=== PATIENT | female | born 1990 | race Caucasian/White ===

== ENCOUNTER 2016-11-07 06:47 | Inpatient (IN) | payer OTHER, MEDICAID ==
[2016-11-07] MEDS ORDERED: Nalbuphine 20 MG/1 ML Amp IVPUSH PRN (07:03)
[2016-11-07] MEDS ORDERED: Ondansetron 4 MG/2 ML SDV IVPUSH PRN ×2 (07:03→07:54)
[2016-11-07] MEDS ORDERED: Sodium Chloride 0.9% 10 ML Syringe FLUSH PRN (07:03)
--- NOTE | 2016-11-07 07:07 | PCM.LDHP ---
L&D History of Present Illness - General Date of Service: 11/07/16 Admit Problem/Dx: Patient Status Order with Admit Dx/Problem 11/07/16 07:04 Patient Status [ADT] Routine Admission Diagnosis/Problem Admission Diagnosis/Problem Normal Source of Information: Patient History Limitations: Reports: No Limitations - History of Present Illness Introduction:: Patient is a 26-year-old 001 at 40-2/7 weeks gestation who presents for induction of labor. Doing well since last seen in clinic. No significant contractions or signs of labor. Baby is doing well with good movement noted. - Related Data Allergies/Adverse Reactions: Allergies Allergy/AdvReac Type Severity Reaction Status Date / Time ketorolac [From Toradol] Allergy Rash Verified 10/22/16 21:48 tramadol Allergy Rash Verified 10/22/16 21:48 Past Medical History HYPERBARIC TECH History: Reports: : 2 Para: 1 LMP (Approximate): Psychiatric History: Reports: Anxiety, Depression - Past Surgical History HEENT Surgical History: Reports: Oral Surgery Social & Family History - Tobacco Use Smoking Status *Q: Former Smoker - Alcohol Use Alcohol Use History: No - Recreational Drug Use Recreational Drug Use: No Drug Use in Last 12 Months: Yes Recreational Drug Type: Reports: Methamphetamine H&P Review of Systems - Review of Systems: Review Of Systems: See Below General: Reports: No Symptoms Pulmonary: Reports: No Symptoms Cardiovascular: Reports: No Symptoms Gastrointestinal: Reports: No Symptoms Genitourinary: Reports: No Symptoms Musculoskeletal: Reports: No Symptoms Skin: Reports: No Symptoms Neurological: Reports: No Symptoms L&D Exam - Exam Exam: See Below - Vital Signs Weight: 70.488 kg - OB Specific Contraction Intensity: Irritability Movement: Active Heart Tones: Present Heart Tones per Min: 130 Heart Rate (FHR) Variability: Moderate (6-25 bmp) Presentation: Vertex - Delaney Score Delaney Score Cervix Position: Posterior Delaney Score Consistency: Soft Delaney Score Effacement: 31-50% Delaney Score Dilation: 3-4 cm Delaney Score 's Station: -2 Delaney Score Total: 6 - Exam General: Alert, Oriented, Cooperative Lungs: Clear to Auscultation, Normal Respiratory Effort Cardiovascular: Regular Rate, Regular Rhythm GI/Abdominal Exam: Soft Genitourinary: Normal external exam Extremities: Normal Inspection Skin: Warm, Dry, Intact - Patient Data Result Diagrams: 11/07/16 07:20 - Problem List (1) 40 weeks gestation of SNOMED Code(s): 14971900 ICD Code: Z3A.40 - 40 WEEKS GESTATION OF Status: Acute Current Visit: Yes (2) Elective induction of labor planned SNOMED Code(s): 815731047 ICD Code: [id number] - Status: Acute Current Visit: Yes (3) History of substance abuse SNOMED Code(s): 621970194 ICD Code: Z87.898 - PERSONAL HISTORY OF OTHER SPECIFIED CONDITIONS Status: Acute Current Visit: Yes (4) Imprisonment and other incarceration SNOMED Code(s): 47789436 ICD Code: Z65.1 - IMPRISONMENT AND OTHER INCARCERATION Status: Acute Current Visit: Yes Problem List Initiated/Reviewed/Updated: Yes Orders Last 24hrs: Active Orders 24 hr Category Date Time Status Patient Status [ADT] Routine ADT 11/07/16 07:04 Ordered Communication Order [RC] ASDIRECTED Care 11/07/16 07:03 Ordered Communication Order [RC] ASDIRECTED Care 11/07/16 07:03 Ordered Communication Order [RC] ASDIRECTED Care 11/07/16 07:03 Ordered Heart Tones [RC] ASDIRECTED Care 11/07/16 07:04 Ordered Monitoring [RC] INTERMITTENT Care 11/07/16 07:03 Ordered Notify Provider [RC] ASDIRECTED Care 11/07/16 07:03 Ordered Notify Provider [RC] PFP Care 11/07/16 07:03 Ordered Notify Provider [RC] PRN Care 11/07/16 07:03 Ordered Peripheral IV Care [RC] . DIRECTED Care 11/07/16 07:04 Ordered Up ad Radha [RC] ASDIRECTED Care 11/07/16 07:04 Ordered Vaginal Exam [RC] ASDIRECTED Care 11/07/16 07:03 Ordered Vital Signs [RC] ASDIRECTED Care 11/07/16 07:03 Ordered Regular Diet [DIET] Diet 11/07/16 Breakfast Ordered CBC W/O DIFF,HEMOGRAM [HEME] Routine Lab 11/07/16 08:00 Ordered TYPE AND SCREEN [BBK] Routine Lab 11/07/16 08:00 Ordered Lactated Ringers [Ringers, Lactated] 1,000 ml Med 11/07/16 07:15 Ordered IV ASDIRECTED Nalbuphine [Nubain] Med 11/07/16 07:03 Ordered 10 mg IVPUSH Q2H PRN Ondansetron [Zofran] Med 11/07/16 07:03 Ordered 4 mg IVPUSH Q4H PRN Oxytocin/Lactated Ringers [Pitocin in LR 10 Units/1,000 Med 11/07/16 07:15 Ordered ML] 10 unit in 1,000 ml IV .CONTINUOUS Oxytocin/Lactated Ringers [Pitocin in LR 10 Units/1,000 Med 11/07/16 07:15 Ordered ML] 10 unit in 1,000 ml IV TITRATE Sodium Chloride 0.9% [Saline Flush] Med 11/07/16 07:03 Ordered 10 ml FLUSH ASDIRECTED PRN Electronic Heart Tones Ext w TOCO [WOMSER] Oth 11/07/16 07:03 Ordered Routine Electronic Heart Tones Internal [WOMSER] Per Unit Ot 11/07/16 07:03 Ordered Routine Peripheral IV Insertion Adult [OM.PC] Routine Oth 11/07/16 07:03 Ordered Resuscitation Status Routine Resus Stat 11/07/16 07:03 Ordered Assessment/Plan Comment:: 26-year-old 001 at 40-2/7 weeks gestation presents for induction of labor * CBC and type and screen * GBS negative, no need for antibiotics * Plan for Pitocin and AROM when able * Pain management per patient preference * Anticipate * Arrangements have been made for childcare after patient delivery Michelle Diaz MD
[2016-11-07] MEDS ORDERED: Oxytocin/Lactated Ringers 10 UNIT/1,000 ML BAG IV SCH ×2 (07:15)
[2016-11-07] MEDS ORDERED: ePHEDrine 50 MG/ML SDV IVPUSH PRN (07:54)
[2016-11-07] MEDS ORDERED: fentaNYL 100 MCG/2 ML SDV EPIDUR PRN (07:54)
[2016-11-07] MEDS ORDERED: Bupivacaine/fentaNYL/NS 100 ML Bag EPIDUR SCH (08:00)
--- NOTE | 2016-11-07 08:06 | PCM.PREANE ---
Preanesthetic Assessment - Anesthesia/Transfusion/Family Hx Anesthesia History: Prior Anesthesia Without Reaction (epidural in the past, no problems noted. No GA noted.) Family History of Anesthesia Reaction: No Transfusion History: No Prior Transfusion(s) Intubation History: Unknown - Review of Systems General: No Symptoms Pulmonary: No Symptoms Cardiovascular: No Symptoms, Palpitations (infrequent), Lightheadedness Gastrointestinal: No Symptoms Neurological: No Symptoms Other: Reports: Easy Bruising, Depression, Anxiety - Physical Assessment NPO Status Date: 11/07/16 NPO Status Time: 06:00 Pulse: 82 O2 Sat by Pulse Oximetry: 97 Respiratory Rate: 16 Blood Pressure: 110/76 Temperature: 36.4 C Height: 1.63 m Weight: 70.488 kg ASA Class: 2 Mental Status: Alert & Oriented x3 Airway Class: Mallampati = 2 Dentition: Reports: Normal Dentition, Caries Thyro-Mental Finger Breadths: 3 Mouth Opening Finger Breadths: 3 ROM/Head Extension: Full Lungs: Clear to Auscultation, Normal Respiratory Effort Cardiovascular: Regular Rate, Regular Rhythm - Lab Values: Laboratory Last Values WBC 10.40 K/mm3 (3.98-10.04) H 11/07/16 07:20 RBC 4.12 M/mm3 (3.98-5.22) 11/07/16 07:20 Hgb 12.4 gm/L (11.2-15.7) 11/07/16 07:20 Hct 37.0 % (34.1-44.9) 11/07/16 07:20 MCV 89.8 fl (79.4-94.8) 11/07/16 07:20 MCH 30.1 pg (25.6-32.2) 11/07/16 07:20 MCHC 33.5 g/dl (32.2-35.5) 11/07/16 07:20 RDW Std Deviation 45.7 fL (36.4-46.3) 11/07/16 07:20 Plt Count 209 K/mm3 (182-369) 11/07/16 07:20 MPV 11.1 fl (9.4-12.3) 11/07/16 07:20 Above labs reviewed and noted. 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: Psychiatric History: Reports: Anxiety, Depression - Past Surgical History HEENT Surgical History: Reports: Oral Surgery - SUBSTANCE USE Smoking Status *Q: Former Smoker Recreational Drug Use History: No Recreational Drug Type: Reports: Methamphetamine - CURRENT (IN HOUSE) MEDS Current Meds: Current Medications Ephedrine Sulfate (Ephedrine Sulfate) 5 mg IVPUSH ASDIRECTED PRN PRN Reason: Hypotension Fentanyl (Sublimaze) 100 mcg EPIDUR Q3H PRN PRN Reason: Pain Fentanyl/Bupivacaine HCl (Fentanyl/Bupivacaine/Ns 2 Mcg-0.125% 100 Ml) 100 ml EPIDUR ASDIRECTED MONICA Lactated Ringer's (Ringers, Lactated) 1,000 mls @ 40 mls/hr IV ASDIRECTED MONICA Oxytocin/Lactated Ringer's (Pitocin In Lr 10 Units/1,000 Ml) 10 unit in 1,000 mls @ 500 mls/hr IV .CONTINUOUS MONICA Oxytocin/Lactated Ringer's (Pitocin In Lr 10 Units/1,000 Ml) 10 unit in 1,000 mls @ 12 mls/hr IV TITRATE MONICA; 2 MUNITS/MIN PRN Reason: Protocol Nalbuphine HCl (Nubain) 10 mg IVPUSH Q2H PRN PRN Reason: Pain (moderate 4-6) Ondansetron HCl (Zofran) 4 mg IVPUSH Q4H PRN PRN Reason: Nausea/Vomiting Ondansetron HCl (Zofran) 4 mg IVPUSH ONETIME PRN PRN Reason: Nausea/Vomiting Sodium Chloride (Saline Flush) 10 ml FLUSH ASDIRECTED PRN PRN Reason: Keep Vein Open
[2016-11-07] MEDS: Lactated Ringers 1,000 ML IV SCH ×6 (08:22→19:24)
--- NOTE | 2016-11-07 12:17 | PCM.PNLD ---
Labor Progress Note - VS & Meds Vital Signs: Last Vital Signs Temp 36.4 C 11/07/16 08:07 Pulse 82 11/07/16 08:07 Resp 16 11/07/16 08:07 BP 110/76 11/07/16 08:07 Pulse Ox 97 11/07/16 08:07 Active Medications: Current Medications Ephedrine Sulfate (Ephedrine Sulfate) 5 mg IVPUSH ASDIRECTED PRN PRN Reason: Hypotension Fentanyl (Sublimaze) 100 mcg EPIDUR Q3H PRN PRN Reason: Pain Last Admin: 11/07/16 12:04 Dose: 100 mcg Fentanyl/Bupivacaine HCl (Fentanyl/Bupivacaine/Ns 2 Mcg-0.125% 100 Ml) 100 ml EPIDUR ASDIRECTED MONICA Last Admin: 11/07/16 12:03 Dose: 100 ml Lactated Ringer's (Ringers, Lactated) 1,000 mls @ 40 mls/hr IV ASDIRECTED MONICA Last Admin: 11/07/16 12:09 Dose: 999 mls/hr Oxytocin/Lactated Ringer's (Pitocin In Lr 10 Units/1,000 Ml) 10 unit in 1,000 mls @ 500 mls/hr IV .CONTINUOUS MONICA Oxytocin/Lactated Ringer's (Pitocin In Lr 10 Units/1,000 Ml) 10 unit in 1,000 mls @ 12 mls/hr IV TITRATE MONICA; 2 MUNITS/MIN PRN Reason: Protocol Last Titration: 11/07/16 10:30 Dose: 8 munits/min, 48 mls/hr Nalbuphine HCl (Nubain) 10 mg IVPUSH Q2H PRN PRN Reason: Pain (moderate 4-6) Ondansetron HCl (Zofran) 4 mg IVPUSH Q4H PRN PRN Reason: Nausea/Vomiting Ondansetron HCl (Zofran) 4 mg IVPUSH ONETIME PRN PRN Reason: Nausea/Vomiting Sodium Chloride (Saline Flush) 10 ml FLUSH ASDIRECTED PRN PRN Reason: Keep Vein Open - Uterine Contractions Uterine Monitoring Mode: External [place] Contraction Intensity: Mild to Moderate - Monitoring Monitor Mode: External Ultrasound Heart Rate (FHR) Baseline: 130 Heart Rate (FHR) Variability: Moderate (6-25 bmp) Accelerations: Present, 15x15 Decelerations: None Strip Review: Category I - Labor Progress (Free Text) Labor Progress: Patient on pitocin of 8. Was planning on doing AROM, but now with low BP's after epidural. Will allow nursing/STORY TELLER to treat BP's and return at a later time for AROM.
--- NOTE | 2016-11-07 13:24 | PCM.SN ---
- Free Text/Narrative Note: Patient experienced some hypotension that required 3 doses of ephedrine, given incrementally. (1245 5 mg IV ephedrine, 1246 10mg IV ephedrine, 1253 5mg IV ephedrine) Pressures ranged in 60's-80's/30-40's, pressures responded nicely to ephedrine with response being back to normal baselines. Pt. able to move toes, legs feel heavy, and infusion turned down to 8ml's/ hr. Patient given verbal reassurance and pressures maintaining in acceptable ranges.
--- NOTE | 2016-11-07 16:40 | PCM.PNLD ---
Labor Progress Note - VS & Meds Vital Signs: Last Vital Signs Temp 36.4 C 11/07/16 08:07 Pulse 82 11/07/16 08:07 Resp 16 11/07/16 08:07 BP 110/76 11/07/16 08:07 Pulse Ox 97 11/07/16 08:07 Active Medications: Current Medications Ephedrine Sulfate (Ephedrine Sulfate) 5 mg IVPUSH ASDIRECTED PRN PRN Reason: Hypotension Fentanyl (Sublimaze) 100 mcg EPIDUR Q3H PRN PRN Reason: Pain Last Admin: 11/07/16 12:04 Dose: 100 mcg Fentanyl/Bupivacaine HCl (Fentanyl/Bupivacaine/Ns 2 Mcg-0.125% 100 Ml) 100 ml EPIDUR ASDIRECTED MONICA Last Admin: 11/07/16 12:03 Dose: 100 ml Lactated Ringer's (Ringers, Lactated) 1,000 mls @ 40 mls/hr IV ASDIRECTED MONICA Last Admin: 11/07/16 14:32 Dose: 999 mls/hr Oxytocin/Lactated Ringer's (Pitocin In Lr 10 Units/1,000 Ml) 10 unit in 1,000 mls @ 500 mls/hr IV .CONTINUOUS MONIAC Oxytocin/Lactated Ringer's (Pitocin In Lr 10 Units/1,000 Ml) 10 unit in 1,000 mls @ 12 mls/hr IV TITRATE MONICA; 2 MUNITS/MIN PRN Reason: Protocol Last Titration: 11/07/16 15:30 Dose: 12 munits/min, 72 mls/hr Nalbuphine HCl (Nubain) 10 mg IVPUSH Q2H PRN PRN Reason: Pain (moderate 4-6) Ondansetron HCl (Zofran) 4 mg IVPUSH Q4H PRN PRN Reason: Nausea/Vomiting Ondansetron HCl (Zofran) 4 mg IVPUSH ONETIME PRN PRN Reason: Nausea/Vomiting Sodium Chloride (Saline Flush) 10 ml FLUSH ASDIRECTED PRN PRN Reason: Keep Vein Open - Uterine Contractions Uterine Monitoring Mode: External [place] Contraction Intensity: Mild to Moderate - Monitoring Monitor Mode: External Ultrasound Heart Rate (FHR) Baseline: 130 Heart Rate (FHR) Variability: Moderate (6-25 bmp) Accelerations: Present, 15x15 Decelerations: None Strip Review: Category I - Vaginal Exam Dilation (cm): 4 Effacement (Percent): 50 Station: -2 Cervical Position: Midposition - Labor Progress (Free Text) Labor Progress: Patient doing well. Comfortable with epidural. Pitocin now at 12. AROM done with release of clear fluid.
[2016-11-07] MEDS ORDERED: diphenhydrAMINE 50 MG/ML SDV IVPUSH PRN ×2 (18:40→18:52)
[2016-11-07] MEDS ORDERED: Phenylephrine 1% 10 MG/ML SDV ONE (22:22)
[2016-11-07] MEDS ORDERED: Bupivacaine 0.25% 10 ML SDV ONE (22:22)
[2016-11-07] MEDS ORDERED: ePHEDrine 50 MG/ML SDV ONE (22:22)
[2016-11-07] MEDS ORDERED: Docusate Sodium 100 MG Cap PO PRN (23:01)
[2016-11-07] MEDS ORDERED: Witch Hazel Medicated Pads 100/Jar TOP PRN (23:01)
[2016-11-07] MEDS ORDERED: Benzocaine/Menthol 20%-0.5% Spray 56 GM Canister TOP PRN (23:01)
[2016-11-07] MEDS ORDERED: Lanolin 100% Cream 7 GM Tube TOP PRN (23:01)
[2016-11-08] MEDS: Acetaminophen 325 MG Tab PO PRN ×4 (02:10→22:06)
--- NOTE | 2016-11-08 06:39 | PCM.SN ---
- Free Text/Narrative Note: Informed patient that I was being called to perform urgent/emergent surgery from ED. Dr. Persaud to cover in case patient delivers during this time. She did deliver with Dr. Persaud. See Jordan Elba for details of delivery
--- NOTE | 2016-11-08 06:47 | PCM.PNPP ---
- General Info Date of Service: 11/08/16 Functional Status: Reports: Pain Controlled, Tolerating Diet, Ambulating - Review of Systems General: Reports: No Symptoms Pulmonary: Reports: No Symptoms Cardiovascular: Reports: No Symptoms Gastrointestinal: Reports: Abdominal Pain (cramping) Genitourinary: Reports: No Symptoms Musculoskeletal: Reports: No Symptoms - Patient Data Vital Signs - Most Recent: Last Vital Signs Temp 37.0 C 11/08/16 04:00 Pulse 64 11/08/16 04:00 Resp 16 11/08/16 04:00 BP 106/88 11/08/16 04:00 Pulse Ox 96 11/08/16 04:00 Weight - Most Recent: 70.488 kg I&O - Last 24 Hours: Intake & Output 11/07/16 11/07/16 11/08/16 14:59 22:59 06:59 Intake Total 5980 1800 Output Total 1475 Balance 4505 1800 Lab Results - Last 24 Hours: Laboratory Results - last 24 hr 11/07/16 11/07/16 11/07/16 Range/Units 07:20 07:20 09:45 WBC 10.40 H (3.98-10.04) K/mm3 RBC 4.12 (3.98-5.22) M/mm3 Hgb 12.4 (11.2-15.7) gm/L Hct 37.0 (34.1-44.9) % MCV 89.8 (79.4-94.8) fl MCH 30.1 (25.6-32.2) pg MCHC 33.5 (32.2-35.5) g/dl RDW Std Deviation 45.7 (36.4-46.3) fL Plt Count 209 (182-369) K/mm3 MPV 11.1 (9.4-12.3) fl MRSA (PCR) Negative Blood Type A POSITIVE Gel Antibody Screen Negative Med Orders - Current: Current Medications Acetaminophen (Tylenol) 650 mg PO Q6H PRN PRN Reason: mild pain or fever Last Admin: 11/08/16 02:10 Dose: 650 mg Benzocaine/Menthol (Dermoplast Pain Relief [place]) 0 gm TOP ASDIRECTED PRN PRN Reason: Perineal Comfort Measure Docusate Sodium (Colace) 100 mg PO BID PRN PRN Reason: Constipation Emollient Ointment (Lansinoh Hpa) 0 gm TOP ASDIRECTED PRN PRN Reason: Sore Nipples Witch Joya (Tucks) 1 pad TOP ASDIRECTED PRN PRN Reason: Hemorrhoid pain Discontinued Medications Diphenhydramine HCl (Benadryl) 25 mg IVPUSH Q6H PRN PRN Reason: Itching Last Admin: 11/07/16 18:51 Dose: 25 mg Diphenhydramine HCl (Benadryl) 25 mg IVPUSH Q6H PRN PRN Reason: pruritis Ephedrine Sulfate (Ephedrine Sulfate) 5 mg IVPUSH ASDIRECTED PRN PRN Reason: Hypotension Fentanyl (Sublimaze) 100 mcg EPIDUR Q3H PRN PRN Reason: Pain Last Admin: 11/07/16 12:04 Dose: 100 mcg Fentanyl/Bupivacaine HCl (Fentanyl/Bupivacaine/Ns 2 Mcg-0.125% 100 Ml) 100 ml EPIDUR ASDIRECTED MONICA Last Admin: 11/07/16 12:03 Dose: 100 ml Lactated Ringer's (Ringers, Lactated) 1,000 mls @ 40 mls/hr IV ASDIRECTED MONICA Last Admin: 11/07/16 19:24 Dose: 125 mls/hr Oxytocin/Lactated Ringer's (Pitocin In Lr 10 Units/1,000 Ml) 10 unit in 1,000 mls @ 500 mls/hr IV .CONTINUOUS MONICA Last Admin: 11/07/16 23:00 Dose: 500 mls/hr Oxytocin/Lactated Ringer's (Pitocin In Lr 10 Units/1,000 Ml) 10 unit in 1,000 mls @ 12 mls/hr IV TITRATE MONICA; 2 MUNITS/MIN PRN Reason: Protocol Last Titration: 11/07/16 20:43 Dose: 6 munits/min, 36 mls/hr Nalbuphine HCl (Nubain) 10 mg IVPUSH Q2H PRN PRN Reason: Pain (moderate 4-6) Ondansetron HCl (Zofran) 4 mg IVPUSH Q4H PRN PRN Reason: Nausea/Vomiting Ondansetron HCl (Zofran) 4 mg IVPUSH ONETIME PRN PRN Reason: Nausea/Vomiting Sodium Chloride (Saline Flush) 10 ml FLUSH ASDIRECTED PRN PRN Reason: Keep Vein Open - Interaction Infant Disposition, : [place] in Room with Family Interaction: Holding Feeding: Bottle Fed Infant Support Person: Other (see below) - Recovery Exam Fundal Tone: Firm Fundal Level: At Umbilicus Fundal Placement: Midline Lochia Amount: Scant Lochia Color: Rubra/Red Perineum Description: Intact, Minimal Bruising/Swelling Episiotomy/Laceration: None Bladder Status: Voiding - Exam General: Alert, Oriented, Cooperative GI/Abdominal Exam: Soft, Non-Tender Extremities: Normal Inspection Skin: Warm, Dry, Intact - Problem List & Annotations (1) 40 weeks gestation of SNOMED Code(s): 06334939 Code(s): Z3A.40 - 40 WEEKS GESTATION OF Status: Acute Current Visit: Yes (2) Elective induction of labor planned SNOMED Code(s): 888216608 Code(s): HRV5286 - Status: Acute Current Visit: Yes (3) History of substance abuse SNOMED Code(s): 510763794 Code(s): Z87.898 - PERSONAL HISTORY OF OTHER SPECIFIED CONDITIONS Status: Acute Current Visit: Yes (4) Imprisonment and other incarceration SNOMED Code(s): 78856969 Code(s): Z65.1 - IMPRISONMENT AND OTHER INCARCERATION Status: Acute Current Visit: Yes (5) Vaginal delivery SNOMED Code(s): 126669460 Code(s): O80 - ENCOUNTER FOR FULL-TERM UNCOMPLICATED DELIVERY Status: Acute Current Visit: Yes - Problem List Review Problem List Initiated/Reviewed/Updated: Yes - My Orders Last 24 Hours: My Active Orders 11/07/16 07:03 Monitoring [RC] INTERMITTENT Vaginal Exam [RC] ASDIRECTED Resuscitation Status Routine 11/07/16 07:04 Heart Tones [RC] ASDIRECTED Peripheral IV Care [RC] . DIRECTED - Assessment Assessment:: 26-year-old PPD#1 from at 40-2/7 weeks - Plan Plan:: * Routine cares * Bottle feeding * Discharge home tomorrow Michelle Diaz MD
--- NOTE | 2016-11-08 10:29 | PCM48HPAN ---
Post Anesthesia Note - EVALUATION WITHIN 48HRS OF ANESTHETIC Vital Signs in Normal Range: Yes Patient Participated in Evaluation: No (patient asleep) Respiratory Function Stable: Yes Airway Patent: Yes Cardiovascular Function Stable: Yes Hydration Status Stable: Yes Pain Control Satisfactory: Yes Nausea and Vomiting Control Satisfactory: Yes Mental Status Recovered: Yes
[2016-11-09] MEDS: Acetaminophen 325 MG Tab PO PRN (04:13)
[2016-11-09 04:15] VITALS: BP 96/55
--- NOTE | 2016-11-09 07:08 | PCM.PNPP ---
- General Info Date of Service: 11/09/16 Functional Status: Reports: Pain Controlled, Tolerating Diet, Ambulating, Urinating - Review of Systems General: Reports: No Symptoms Pulmonary: Reports: No Symptoms Cardiovascular: Reports: No Symptoms Gastrointestinal: Reports: No Symptoms Genitourinary: Reports: No Symptoms Musculoskeletal: Reports: No Symptoms - Patient Data Vital Signs - Most Recent: Last Vital Signs Temp 36.1 C 11/09/16 04:00 Pulse 62 11/09/16 04:00 Resp 14 11/09/16 04:00 BP 96/55 L 11/09/16 04:00 Pulse Ox 98 11/09/16 04:00 Weight - Most Recent: 70.488 kg Med Orders - Current: Current Medications Acetaminophen (Tylenol) 650 mg PO Q6H PRN PRN Reason: mild pain or fever Last Admin: 11/09/16 04:13 Dose: 650 mg Benzocaine/Menthol (Dermoplast Pain Relief [place]) 0 gm TOP ASDIRECTED PRN PRN Reason: Perineal Comfort Measure Docusate Sodium (Colace) 100 mg PO BID PRN PRN Reason: Constipation Emollient Ointment (Lansinoh Hpa) 0 gm TOP ASDIRECTED PRN PRN Reason: Sore Nipples Witch Joya (Tucks) 1 pad TOP ASDIRECTED PRN PRN Reason: Hemorrhoid pain Discontinued Medications Bupivacaine HCl (Sensorcaine-Mpf 0.25%) 10 ml .ROUTE .STK-MED ONE Stop: 11/07/16 22:23 Diphenhydramine HCl (Benadryl) 25 mg IVPUSH Q6H PRN PRN Reason: Itching Last Admin: 11/07/16 18:51 Dose: 25 mg Diphenhydramine HCl (Benadryl) 25 mg IVPUSH Q6H PRN PRN Reason: pruritis Ephedrine Sulfate (Ephedrine Sulfate) 5 mg IVPUSH ASDIRECTED PRN PRN Reason: Hypotension Ephedrine Sulfate (Ephedrine Sulfate) 50 mg .ROUTE .STK-MED ONE Stop: 11/07/16 22:23 Fentanyl (Sublimaze) 100 mcg EPIDUR Q3H PRN PRN Reason: Pain Last Admin: 11/07/16 12:04 Dose: 100 mcg Fentanyl/Bupivacaine HCl (Fentanyl/Bupivacaine/Ns 2 Mcg-0.125% 100 Ml) 100 ml EPIDUR ASDIRECTED MONICA Last Admin: 11/07/16 12:03 Dose: 100 ml Lactated Ringer's (Ringers, Lactated) 1,000 mls @ 40 mls/hr IV ASDIRECTED MONICA Last Admin: 11/07/16 19:24 Dose: 125 mls/hr Oxytocin/Lactated Ringer's (Pitocin In Lr 10 Units/1,000 Ml) 10 unit in 1,000 mls @ 500 mls/hr IV .CONTINUOUS MONICA Last Admin: 11/07/16 23:00 Dose: 500 mls/hr Oxytocin/Lactated Ringer's (Pitocin In Lr 10 Units/1,000 Ml) 10 unit in 1,000 mls @ 12 mls/hr IV TITRATE MONICA; 2 MUNITS/MIN PRN Reason: Protocol Last Titration: 11/07/16 20:43 Dose: 6 munits/min, 36 mls/hr Nalbuphine HCl (Nubain) 10 mg IVPUSH Q2H PRN PRN Reason: Pain (moderate 4-6) Ondansetron HCl (Zofran) 4 mg IVPUSH Q4H PRN PRN Reason: Nausea/Vomiting Ondansetron HCl (Zofran) 4 mg IVPUSH ONETIME PRN PRN Reason: Nausea/Vomiting Phenylephrine HCl ([place]-Synephrine) 10 mg .ROUTE .STK-MED ONE Stop: 11/07/16 22:23 Sodium Chloride (Saline Flush) 10 ml FLUSH ASDIRECTED PRN PRN Reason: Keep Vein Open - Infant Interaction Disposition, : in Room with Family Infant Interaction: Holding Infant Infant Feeding: Bottle Fed Support Person: Other (see below) - Recovery Exam Fundal Tone: Firm Fundal Level: At Umbilicus Fundal Placement: Midline Lochia Amount: Small Lochia Color: Rubra/Red Perineum Description: Intact, Minimal Bruising/Swelling Episiotomy/Laceration: None Bladder Status: Voiding Urinary Elimination: Voided - Exam General: Alert, Oriented, Cooperative GI/Abdominal Exam: Soft, Non-Tender Extremities: Normal Inspection Skin: Warm, Dry, Intact - Problem List & Annotations (1) 40 weeks gestation of SNOMED Code(s): 97257574 Code(s): Z3A.40 - 40 WEEKS GESTATION OF Status: Acute (2) Elective induction of labor planned SNOMED Code(s): 404578531 Code(s): LBJ9959 - Status: Acute (3) History of substance abuse SNOMED Code(s): 003152479 Code(s): Z87.898 - PERSONAL HISTORY OF OTHER SPECIFIED CONDITIONS Status: Acute (4) Imprisonment and other incarceration SNOMED Code(s): 32516464 Code(s): Z65.1 - IMPRISONMENT AND OTHER INCARCERATION Status: Acute (5) Vaginal delivery SNOMED Code(s): 521981604 Code(s): O80 - ENCOUNTER FOR FULL-TERM UNCOMPLICATED DELIVERY Status: Acute - Problem List Review Problem List Initiated/Reviewed/Updated: Yes - Assessment Assessment:: 26-year-old PPD#2 from at 40-2/7 weeks - Plan Plan:: * Routine cares * Bottle feeding * Discharge to correctional facility today Michelle Diaz MD
--- NOTE | 2016-11-09 07:08 | PCM.DCSUM1 ---
Discharge Summary - Discharge Data Discharge Date: 11/09/16 Discharge Disposition: DC/Tfer to Court [facility] Enf 21 Condition: Good - Discharge Diagnosis/Problem(s) (1) 40 weeks gestation of SNOMED Code(s): 73473172 ICD Code: Z3A.40 - 40 WEEKS GESTATION OF Status: Acute (2) Elective induction of labor planned SNOMED Code(s): 505094955 ICD Code: [id number] - Status: Acute (3) History of substance abuse SNOMED Code(s): 176934149 ICD Code: Z87.898 - PERSONAL HISTORY OF OTHER SPECIFIED CONDITIONS Status: Acute (4) Imprisonment and other incarceration SNOMED Code(s): 25549048 ICD Code: Z65.1 - IMPRISONMENT AND OTHER INCARCERATION Status: Acute (5) Vaginal delivery SNOMED Code(s): 579741998 ICD Code: O80 - ENCOUNTER FOR FULL-TERM UNCOMPLICATED DELIVERY Status: Acute - Patient Summary/Data Complications: None Consults: None Recommended Follow-up Testing/Procedures: Follow up in 4 weeks for check Hospital Course: 26 y/o presented at 40 2/7 wks gestation for elective IOL. This was done with pitocin and AROM when able. She progressed well to complete dilation and underwent an uncomplicated . See delivery note. she did well and was discharged back to her correctional facility on PPD#2 - Patient Instructions Diet: Regular Diet as Tolerated Activity: As Tolerated Activity, Other: Pelvic Rest for 6 weeks Driving: May Drive Today Showering/Bathing: May Shower Showering/Bathing, Other: May bathe Notify Provider of: Fever, Increased Pain, Swelling and Redness, Drainage, Nausea and/or Vomiting - Discharge Plan Home Medications: Home Meds Docusate Sodium [Colace] 1 tab PO DAILY 11/07/16 [History] Vit #108/Iron/FA [ One Tablet] 1 tab PO DAILY 11/07/16 [History ] Patient Handouts: Smoking Hazards, Vaginal Delivery, Care After, Smoking Cessation, Tips for Success Referrals: Michelle Diaz MD [Physician] - (4 weeks for check ) - Discharge Summary/Plan Comment DC Time >30 min.: No - Patient Data Vitals - Most Recent: Last Vital Signs Temp 36.1 C 11/09/16 04:00 Pulse 62 11/09/16 04:00 Resp 14 11/09/16 04:00 BP 96/55 L 11/09/16 04:00 Pulse Ox 98 11/09/16 04:00 Weight - Most Recent: 70.488 kg Med Orders - Current: Current Medications Acetaminophen (Tylenol) 650 mg PO Q6H PRN PRN Reason: mild pain or fever Last Admin: 11/09/16 04:13 Dose: 650 mg Benzocaine/Menthol (Dermoplast Pain Relief [place]) 0 gm TOP ASDIRECTED PRN PRN Reason: Perineal Comfort Measure Docusate Sodium (Colace) 100 mg PO BID PRN PRN Reason: Constipation Emollient Ointment (Lansinoh Hpa) 0 gm TOP ASDIRECTED PRN PRN Reason: Sore Nipples Witch Joya (Tucks) 1 pad TOP ASDIRECTED PRN PRN Reason: Hemorrhoid pain Discontinued Medications Bupivacaine HCl (Sensorcaine-Mpf 0.25%) 10 ml .ROUTE .STK-MED ONE Stop: 11/07/16 22:23 Diphenhydramine HCl (Benadryl) 25 mg IVPUSH Q6H PRN PRN Reason: Itching Last Admin: 11/07/16 18:51 Dose: 25 mg Diphenhydramine HCl (Benadryl) 25 mg IVPUSH Q6H PRN PRN Reason: pruritis Ephedrine Sulfate (Ephedrine Sulfate) 5 mg IVPUSH ASDIRECTED PRN PRN Reason: Hypotension Ephedrine Sulfate (Ephedrine Sulfate) 50 mg .ROUTE .STK-MED ONE Stop: 11/07/16 22:23 Fentanyl (Sublimaze) 100 mcg EPIDUR Q3H PRN PRN Reason: Pain Last Admin: 11/07/16 12:04 Dose: 100 mcg Fentanyl/Bupivacaine HCl (Fentanyl/Bupivacaine/Ns 2 Mcg-0.125% 100 Ml) 100 ml EPIDUR ASDIRECTED [facility] [place] Last Admin: 11/07/16 12:03 Dose: 100 ml Lactated Ringer's (Ringers, Lactated) 1,000 mls @ 40 mls/hr IV ASDIRECTED MONICA Last Admin: 11/07/16 19:24 Dose: 125 mls/hr Oxytocin/Lactated Ringer's (Pitocin In Lr 10 Units/1,000 Ml) 10 unit in 1,000 mls @ 500 mls/hr IV .CONTINUOUS MONICA Last Admin: 11/07/16 23:00 Dose: 500 mls/hr Oxytocin/Lactated Ringer's (Pitocin In Lr 10 Units/1,000 Ml) 10 unit in 1,000 mls @ 12 mls/hr IV TITRATE MONICA; 2 MUNITS/MIN PRN Reason: Protocol Last Titration: 11/07/16 20:43 Dose: 6 munits/min, 36 mls/hr Nalbuphine HCl (Nubain) 10 mg IVPUSH Q2H PRN PRN Reason: Pain (moderate 4-6) Ondansetron HCl (Zofran) 4 mg IVPUSH Q4H PRN PRN Reason: Nausea/Vomiting Ondansetron HCl (Zofran) 4 mg IVPUSH ONETIME PRN PRN Reason: Nausea/Vomiting Phenylephrine HCl (Edward-Synephrine) 10 mg .ROUTE .STK-MED ONE Stop: 11/07/16 22:23 Sodium Chloride (Saline Flush) 10 ml FLUSH ASDIRECTED PRN PRN Reason: Keep Vein Open *Q Meaningful Use (DIS) - VTE *Q VTE Criteria *Q: - Stroke *Q Stroke Criteria *Q: - AMI *Q AMI Criteria *Q:
== END 2016-11-09 10:00 | DRG 775 ==
LOC: EEVIPCON 06:47 → JD.OB 06:47 → OBSVTOIN 22:04
PROVIDERS: ADMIT Obstetrics & Gynecology; ATTEND Obstetrics & Gynecology
PROC: 10E0XZZ Delivery of Products of Conception, External Approach (ICD-10-PCS; principal; 2016-11-07)
PROC: 3E033VJ Introduction of Other Hormone into Peripheral Vein, Percutaneous Approach (ICD-10-PCS; 2016-11-07)
PROC: 10907ZC Drainage of Amniotic Fluid, Therapeutic from Products of Conception, Via Natural or Artificial Opening (ICD-10-PCS; 2016-11-07)
PROC: 00HU33Z Insertion of Infusion Device into Spinal Canal, Percutaneous Approach (ICD-10-PCS; 2016-11-07)
PROC: 3E0R3CZ (ICD-10-PCS; 2016-11-07)
DX: O48.0 Post-term pregnancy (principal); Z3A.40 40 weeks gestation of pregnancy; Z37.0 Single live birth; Z87.898 Personal history of other specified conditions; Z87.891 Personal history of nicotine dependence
CPT/HCPCS: 01967; 36415; 85027; 86850; 86900; 86901; 87641; A9270-GY; J1200; J2370; J2590; J3010; J7120